=== PATIENT | female | born 1980 | race Caucasian/White ===

== ENCOUNTER → 2020-12-24 | Outpatient (CLI) | payer BC ==
[2005-01-11 16:00] VITALS: PULSE 74; TEMP 97.5
[~2020-12-24] MED LIST: PENTASA500 MG PO; PERCOCET 325 MG1 TA2 PO; PREDNISONE10 M1 PO
== END ==
LOC: MC.RAD 13:40
DX: Z12.31 Encounter for screening mammogram for malignant neoplasm of breast (principal)